=== PATIENT | female | born 1955 | race Caucasian/White ===

== ENCOUNTER 2024-02-27 07:54 | Outpatient (CLI) | payer MEDICARE, SELFPAY ==
--- NOTE | 2024-02-27 08:12 | W.ANESCHARGE ---
Anesthesia Charges Start Date/Time Anesthesia Start Date: 02/27/24 Anesthesia Start Time: 09:03 Stop Date/Time Anesthesia Stop Date: 02/27/24 Anesthesia Stop Time: 09:38
--- NOTE | 2024-02-27 10:06 | W.ANESCHARGE ---
Anesthesia Charges Start Date/Time Anesthesia Start Date: 02/27/24 Anesthesia Start Time: 09:03 Stop Date/Time Anesthesia Stop Date: 02/27/24 Anesthesia Stop Time: 09:38
== END 2024-02-27 07:55 | disposition home or self-care (01) ==
LOC: OP CLINIC 08:00
PROVIDERS: PCP Family Medicine; Visit Provider Surgery
DX: Z12.11 Encounter for screening for malignant neoplasm of colon (principal); K63.5 Polyp of colon; K62.1 Rectal polyp; K57.30 Diverticulosis of large intestine without perforation or abscess without bleeding
CPT/HCPCS: 00811; 45385; 88305; J2704